=== PATIENT | male | born 1995 | race Caucasian/White ===

== ENCOUNTER 2019-07-09 01:10 | Emergency (ER) | payer BC, OTHER ==
[2019-07-09] MEDS ORDERED: Gentamicin 0.3% Ophth Soln 5 ML Bottle EYEBOTH ONE (01:11)
[2019-07-09] MEDS ORDERED: Tetracaine HCl/PF 0.5% 4 ML Bottle EYEBOTH ONE (01:11)
[2019-07-09] MEDS ORDERED: Phenylephrine 2.5% Ophth Soln 2 ML Bot EYEBOTH ONE (01:11)
[2019-07-09] MEDS ORDERED: Acetaminophen/HYDROcodone 325-5 MG Tab PO ONE (01:11)
[2019-07-09 01:17] VITALS: BP 149/80; PULSE 81
[2019-07-09] MEDS: Diphtheria,Pertussis(Acell),Tetanus Vaccine 0.5 ML Syringe IM ONE (02:09)
--- NOTE | 2019-07-09 02:11 | EDM.PDOC ---
ED HPI GENERAL MEDICAL PROBLEM - General Chief Complaint: General Stated Complaint: right eye irritation Time Seen by Provider: 07/09/19 01:30 Source of Information: Reports: Patient History Limitations: Reports: No Limitations - History of Present Illness INITIAL COMMENTS - FREE TEXT/NARRATIVE: Patient to the emergency department where he was working on an engine on Wednesday and Wednesday night he felt as if there is a foreign body in his right eye. The patient actually seen in [place] yesterday and was unable to complete a exam of the eye secondary to their equipment malfunction. The patient was told that it appears to be allergies and was given medication for allergies. The patient advises that he woke up around midnight with increase in pain and unable to really open his eye at that point. The patient denies any change in vision other than light irritates his eye. There is no other symptoms Onset: Gradual Duration: Day(s): (Wednesday past) Location: Reports: Other (Right eye) Quality: Reports: Burning, Throbbing Severity: Moderate Improves with: Reports: None Worsens with: Reports: Other (With light) Associated Symptoms: Reports: No Other Symptoms. Denies: Headaches, Nausea/ Vomiting Treatments SUBMERSIBLE PILOT: Reports: Other (see below) (As above) Right Eye Pain Score (Numeric/FACES): 9 - Related Data Allergies Allergy/AdvReac Type Severity Reaction Status Date / Time amoxicillin Allergy Vomiting Verified 07/09/19 01:18 Home Meds: Home Meds Ibuprofen 200 mg PO TID 07/09/19 [History] Ketotifen Fumarate [Allergy Eye Drops] 5 ml OP ASDIRECTED 07/09/19 [History] diphenhydrAMINE HCL [Allergy Medicine] 25 mg PO BID 07/09/19 [History] Past Medical History - Past Surgical History HEENT Surgical History: Reports: Tonsillectomy Social & Family History - Tobacco Use Smoking Status *Q: Never Smoker - Caffeine Use Caffeine Use: Reports: None - Recreational Drug Use Recreational Drug Use: No ED ROS GENERAL - Review of Systems Review Of Systems: See Below Constitutional: Reports: No Symptoms. Denies: Fever, Chills HEENT: Reports: Eye Pain, Glasses. Denies: Eye Discharge Respiratory: Reports: No Symptoms Cardiovascular: Reports: No Symptoms GI/Abdominal: Reports: No Symptoms. Denies: Nausea, Vomiting Musculoskeletal: Reports: No Symptoms Skin: Reports: No Symptoms. Denies: Rash, Erythema Neurological: Reports: No Symptoms. Denies: Dizziness, Headache Psychiatric: Reports: No Symptoms ED EXAM, GENERAL - Physical Exam Exam: See Below Exam Limited By: No Limitations General Appearance: Alert, WD/WN, No Apparent Distress Eye Exam: Right Eye: Foreign Body (Foreign body at 3:00 right eye), Bilateral Eye: EOMI, PERRL Head: Atraumatic, Normocephalic Neck: Normal Inspection, Supple, Non-Tender, Full Range of Motion Respiratory/Chest: No Respiratory Distress, Lungs Clear, Normal Breath Sounds, Chest Non-Tender Cardiovascular: Normal Peripheral Pulses, Regular Rate, Rhythm, No Murmur Peripheral Pulses: 2+: Radial (L) Back Exam: Normal Inspection, Full Range of Motion Extremities: Normal Inspection, Normal Range of Motion, Non-Tender, Normal Capillary Refill Neurological: Alert, Oriented, Normal Cognition, Normal Gait ED GENERAL MEDICAL PROCEDURES - Additional/Other Procedure(s) Other (Free Text) Procedure(s): 2 drops of tetracaine was placed as well as the eye was stained with fluorescein , following this a foreign body was identified at 3:00 which appears to be metal. This foreign body was removed with a needle without any problems. There is a rust ring left and I did advise the patient of this and advised him that he will need to follow-up with the dialysis technician or charge manager to have the rust ring removed this week. Following this the eye was dilated with phenylephrine and gentamicin eyedrops were placed. The patient will be given gentamicin eyedrops 1 drop 3 times a day for 5 days. The patient is also advised that the eye heals very quickly and should be healed almost 10% completely in 24 hours if he becomes worse or not almost 100% better in 24 hours she is to return to the emergency department for reevaluation with verbal understanding. Course - Vital Signs Text/Narrative:: The patient was evaluated in the emergency department, on exam there was an obvious foreign body at 3:00 in the right eye. Using a needle the foreign body was removed without any trouble. There is a rust ring left. I did advise the patient of this and advised him that at some point this week the patient will need to follow-up with an dialysis technician or an charge manager to have the rust ring removed. The eye was dilated with 2 drops of phenylephrine in the right eye every 5 minutes x 3 in the emergency department and 2 gentamicin eyedrops were placed in the right eye. The patient's tetanus shot was updated with a Tdap. The patient was given Percocet 5/325 mg 1 p.o. in the emergency department as well as he was given [place] 5/325 mg 1 every 4-6 hours as needed for pain #4 to go. Visual acuity with the Snellen's chart shows the right eye at 20/15, left eye 20/15 in both eyes at 2014 the patient was also able to determine all the colors on the Snellen chart appropriately. The patient was advised that the eye heals very quickly and that he should be almost 100% better 24 hours he was advised if he is worse or is not 100% better in 24 hours he needs to return to the emergency department for reevaluation, the patient verbally understands. Patient will be given the gentamicin eyedrops and he will be advised to apply 1 drop in the right eye 3 times a day for 5 days. Last Recorded V/S: Last Vital Signs Temp 37.4 C 07/09/19 01:14 Pulse 81 07/09/19 01:14 Resp 18 07/09/19 01:14 BP 149/80 H 07/09/19 01:14 Pulse Ox 99 07/09/19 01:14 - Orders/Labs/Meds Orders: Active Orders 24 hr Category Date Time Status Vaccines to be Administered [RC] PER UNIT ROUTINE Care 07/09/19 02:00 Ordered Acetaminophen/HYDROcodone [Take Home: Acetaminophen/ Med 07/09/19 02:17 Once HYDROcod, 2 Tab Pack] 2 packet PO ONETIME ONE Acetaminophen/oxyCODONE [Percocet 325-5 MG] Med 07/09/19 02:17 Once 1 tab PO ONETIME ONE Medication Orders Hydrocodone Bitart/Acetaminophen (Take Home: Acetaminophen/Hydrocod, 2 Tab Pack ) 2 packet PO ONETIME ONE Stop: 07/09/19 02:18 Oxycodone/Acetaminophen (Percocet 325-5 Mg) 1 tab PO ONETIME ONE Stop: 07/09/19 02:18 Meds: Medications Generic Name Dose Route Start Last Admin Trade Name Freq PRN Reason Stop Dose Admin Hydrocodone Bitart/Acetaminophen 2 packet 05/03/20 02:17 Take Home: Acetaminophen/Hydrocod, 2 Tab Pack PO 07/09/19 02:18 ONETIME ONE Oxycodone/Acetaminophen 1 tab 07/09/19 02:17 Percocet 325-5 Mg PO 07/09/19 02:18 ONETIME ONE Discontinued Medications Generic Name Dose Route Start Last Admin Trade Name Darrell PRN Reason Stop Dose Admin Diphtheria/Tetanus/Acell Pertussis 0.5 ml 07/09/19 01:59 07/09/19 02:09 Adacel IM 07/09/19 02:00 0.5 ml .ONCE ONE Administration Tetracaine HCl 0.25 ml 07/09/19 01:59 07/09/19 02:12 Tetracaine 0.5% Steri-Unit Marissa EYERT 07/09/19 02:00 2 drop ASDIRECTED ONE Administration Departure - Departure Time of Disposition: 02:15 Disposition: Home, Self-Care 01 Condition: Good Clinical Impression: Foreign body in cornea, right eye, initial encounter - Discharge Information *PRESCRIPTION DRUG MONITORING PROGRAM REVIEWED*: Not Applicable *COPY OF PRESCRIPTION DRUG MONITORING REPORT IN PATIENT YONATHAN: Not Applicable Instructions: Eye Foreign Body, [id number] Referrals: Travis Loza MD [Primary Care Provider] - Forms: ED Department Discharge Additional Instructions: Apply 1 drop of gentamicin to the right eye 3 times a day for 5 days Follow-up with an dialysis technician or charge manager this week for removal of the rust ring [place] 5/325 mg 1 every 4-6 hours as needed for pain If not 100% better in 24 hours return to the emergency department for reevaluation and return to the emergency department sooner if worse or any problems Sepsis Event Note - Evaluation Sepsis Screening Result: No Definite Risk - Focused Exam Vital Signs: Vital Signs Temp Pulse Resp BP Pulse Ox 07/09/19 01:14 37.4 C 81 18 149/80 H 99 Date Exam was Performed: 07/09/19 Time Exam was Performed: 02:18 - Problem List & Annotations (1) Foreign body in cornea, right eye, initial encounter SNOMED Code(s): 26083426257029234 Code(s): T15.01XA - FOREIGN BODY IN CORNEA, RIGHT EYE, INITIAL ENCOUNTER Status: Acute Priority: High Current Visit: Yes - Problem List Review Problem List Initiated/Reviewed/Updated: Yes - My Orders Last 24 Hours: My Active Orders 07/09/19 02:00 Vaccines to be Administered [RC] PER UNIT ROUTINE 07/09/19 02:17 Acetaminophen/HYDROcodone [Take Home: Acetaminophen/HYDROcod, 2 Tab Pack] 2 packet PO ONETIME ONE Acetaminophen/oxyCODONE [Percocet 325-5 MG] 1 tab PO ONETIME ONE - Assessment/Plan Last 24 Hours: My Active Orders 07/09/19 02:00 Vaccines to be Administered [RC] PER UNIT ROUTINE 07/09/19 02:17 Acetaminophen/HYDROcodone [Take Home: Acetaminophen/HYDROcod, 2 Tab Pack] 2 packet PO ONETIME ONE Acetaminophen/oxyCODONE [Percocet 325-5 MG] 1 tab PO ONETIME ONE Plan: As above The patient's past medical history, past surgical history, past family medical history and social history was reviewed see the nursing notes for details
[2019-07-09] MEDS: Tetracaine HCl/PF 0.5% 4 ML Bottle EYERT ONE (02:12)
[2019-07-09] MEDS: Acetaminophen/oxyCODONE 325-5 MG Tab PO ONE (02:21)
[2019-07-09] MEDS: Take Home: Acetaminophen/HYDROcodone 325-5 MG, 2 Tab Pack PO ONE (02:24)
== END 2019-07-09 02:28 | disposition home or self-care (01) ==
LOC: CC.ED 01:10
DX: T15.01XA Foreign body in cornea, right eye, initial encounter (principal); Z88.0 Allergy status to penicillin; Z79.899 Other long term (current) drug therapy; Z23 Encounter for immunization
CPT/HCPCS: 65220; 90471; 90715; 99283; A9270-GY